=== PATIENT | male | born 1985 | race Caucasian/White ===

== ENCOUNTER 2019-07-13 22:39 | Emergency (ER) | payer MEDICAID ==
[~2019-07-13] VITALS: Ht 177.8 cm; Wt 99.8 kg
[2019-07-13 22:40] VITALS: BP_SYST 114
--- NOTE | 2019-07-13 22:40 | NUR ---
ER at bedside examining patient.
--- NOTE | 2019-07-13 22:40 | NUR ---
Patient to ER bed 5 to gown for evaluation. Side rails up. Report given to ANN.
--- NOTE | 2019-07-13 22:41 | NUR ---
Pt Bigg presents to the ER for possible overdose x today. Pt friend called EMS stated pt took oxycotin, EMS reports pt unconscious and in respiratory distress, Narcan given at scene. At ER pt AxOx4, talking, cooperative and aware of surroundings. Denies chest pain, dizzness. Hx of substance abuse, eloped from rehab x today.
[2019-07-13] MEDS ORDERED: NACL 0.9% 1,000 ML IV ONE (23:00)
[2019-07-13 23:38] LABS: BILIRUBIN,URINE NEGATIVE (NEGATIVE); CLARITY/URINE CLEAR (CLEAR); COLOR,URINE YELLOW (YELLOW); GLUCOSE,URINE NEGATIVE (NEGATIVE); KETONES,URINE NEGATIVE (NEGATIVE); LEUKOCYTE ESTERASE ,URINE NEGATIVE (NEGATIVE); NITRITE, URINE NEGATIVE (NEGATIVE); PROTEIN URINE 2+ (NEGATIVE); UROBILINOGEN,URINE 0.2 (0.2-1.0)
[2019-07-13 23:44] LABS: BLOOD, URINE TRACE (NEGATIVE)
[2019-07-13 23:50] LABS: BARBITURATE, URINE NEGATIVE (NEG <=200); BENZODIAZEPINE, URINE NEGATIVE (NEG <=150); CANNABINOID, URINE NEGATIVE (NEG <=50); COCAINE, URINE NEGATIVE (NEG <=150); METHAMPHETAMINES SCREEN,URINE NEGATIVE (NEG <=500); OPIATE, URINE NEGATIVE (NEG <=100); PHENCYCLIDINE SCREEN,URINE NEGATIVE (NEG <=25); UR TRICYCLIC ANTIDEPRESSANTS NEGATIVE (NEG <=300); URINE AMPHETAMINE NEGATIVE (NEG <=500); URINE METHADONE NEGATIVE (NEG <=200); URINE OXYCODONE SCREEN NEGATIVE (NEG <=100); URINE PROPOXYPHENE SCREEN NEGATIVE (NEG <=300)
[2019-07-13 23:59] LABS: BASOPHILS # (AUTO) 0.1 K/uL (0.0-0.2); BASOPHILS % (AUTO) 0.4 % (0.0-2.0); EOSINOPHILS % (AUTO) 0.3 % (0.0-4.0); HEMATOCRIT 49.7 % (36-54); HEMOGLOBIN 17.1 g/dL (14.0-18.0); LYMPHOCYTES # (AUTO) 2.5 K/uL (1.0-5.5); LYMPHOCYTES % (AUTO) 15.3 % (20.5-51.5); MEAN CORPUSCULAR HEMOGLOBIN 31 pg (27-31); MEAN CORPUSCULAR HGB CONC 34 % (32-36); MEAN CORPUSCULAR VOLUME 90 fL (79.0-98.0); MONOCYTES # (AUTO) 1.1 K/uL (0.0-1.0); MONOCYTES % (AUTO) 6.5 % (1.7-9.3); NEUTROPHILS # (AUTO) 12.7 K/uL (1.8-7.7); NEUTROPHILS % (AUTO) 77.5 % (40.0-70.0); PLATELET COUNT (AUTO) 251 K/uL (130-430); RED CELL DISTRIBUTION WIDTH 12.3 % (9.0-15.0); WHITE BLOOD COUNT (AUTO) 16.4 K/uL (4.8-10.8)
[2019-07-14 00:05] LABS: ANION GAP 13 (5-15); CALCIUM 8.8 mg/dL (8.4-11.0); CHLORIDE 102 mmol/L (98-107); GLUCOSE 110 mg/dL (70-99); POTASSIUM 3.7 mmol/L (3.5-5.1); SODIUM SERUM 139 mmol/L (136-145); UREA NITROGEN, BLOOD 22 mg/dL (8-21)
[2019-07-14 00:13] LABS: ALANINE AMINOTRANSFERASE 43 U/L (12-78); ALBUMIN 4.4 g/dL (3.4-4.8); ASPARTATE AMINOTRANSFERASE 23 U/L (10-37); TOTAL BILIRUBIN 0.8 mg/dL (0.0-1.0)
[2019-07-14 00:15] LABS: GFR AFRICAN AMERICAN 60 mL/min (>90)
[2019-07-14 00:16] LABS: ACETAMINOPHEN < 1 ug/mL (1-30); ALCOHOL, BLOOD < 3 mg/dL (<10)
[2019-07-14 00:18] LABS: BACTERIA,URINE FEW /HPF (None Seen); HYALINE CASTS, URINE 0-10 /LPF (None Seen)
[2019-07-14 00:55] VITALS: BP_SYST 123
--- NOTE | 2019-07-14 00:55 | NUR ---
Pt AxOx4, coopertive. Pt presistent in leaving against medical advice. MD aware, and at bedside discussing consequences of leaving.
--- NOTE | 2019-07-14 01:13 | NUR ---
Patient does not wish to proceed with medical care recommended by Dr. Ervin. Patient given information related to possible complications, up to and including , which could occur as a result of leaving hospital at this time. Patient verbalizes understanding of risks involved leaving against medical advice. Patient has signed AMA form.
== END 2019-07-14 01:13 | disposition left against medical advice (07) ==
LOC: SED 22:39
DX: T42.4X1A Poisoning by benzodiazepines, accidental (unintentional), initial encounter (principal); Y92.89 Other specified places as the place of occurrence of the external cause
CPT/HCPCS: 36415; 71045; 80053; 80307; 81000; 82140; 85025; 87086; 93005; 99285; G0480; G0481; G0482; J7030